=== PATIENT | female | born 1965 | race Caucasian/White ===

== ENCOUNTER 2018-07-05 05:36 | Observation (INO) ==
[2018-07-05] MEDS ORDERED: ceFAZolin 2 GM IV; once IV.SIG PRN (06:07)
[2018-07-05] MEDS ORDERED: Gabapentin 300 MG Capsule PO PRN (06:08)
[2018-07-05] MEDS ORDERED: Metoprolol Tartrate 25 MG Tablet PO ONE (06:10)
[2018-07-05] MEDS ORDERED: Chlorhexidine Gluconate 2% 1 Pack (2 Cloths) TOPICAL ONE (06:10)
[2018-07-05] MEDS ORDERED: ceFAZolin 2 GM Premix Inj 2 GM/100 ML BAG IV.SIG SCH (07:00)
[2018-07-05] MEDS ORDERED: Sodium Chlor 0.9% Inj 500 ML IV.SIG SCH (07:00)
[2018-07-05] MEDS ORDERED: Lidocaine 1%/Epinephrine 1:100,000 Inj 20 ML Vial ONE (07:22)
[2018-07-05] MEDS ORDERED: Ketorolac Inj 30 MG/ML (IVP) Vial IV.PUSH ONE ×2 (07:30→10:20)
[2018-07-05] MEDS ORDERED: Neostigmine Inj 5 MG/5 ML Syringe IV.PUSH ONE (07:30)
[2018-07-05] MEDS ORDERED: Glycopyrrolate Inj 1 MG/5 ML Syringe IV.PUSH ONE (07:30)
[2018-07-05] MEDS ORDERED: Lidocaine PF 1% Inj 5 ML Syringe OTHER ONE (07:30)
[2018-07-05] MEDS ORDERED: Ibuprofen 600 MG Tablet PO PRN (09:29)
[2018-07-05] MEDS ORDERED: fentaNYL Citrate Inj 100 MCG/2 ML Ampul ONE ×2 (09:47)
[2018-07-05] MEDS ORDERED: Morphine Inj 4 MG/ML Vial ONE (09:47)
[2018-07-05] MEDS ORDERED: *morphine SULFATE 10 MG/ML PERIprocedure ONLY ONE (09:54)
--- NOTE | 2018-07-05 10:04 | P.OP ---
Date of procedure: 07/05/18 Surgeon: Zeb Bejarano MD Operation and Findings: Preoperative diagnosis: 1. Abnormal uterine bleeding 2. Heavy menstrual bleeding 3. Fibroid uterus Postop diagnosis 1. Same as above status post hysterectomy Procedure 1. Total laparoscopic hysterectomy, bilateral salpingectomy, diagnostic cystoscopy. Lysis of adhesions taking approximately [address] Zeb Bejarano Fleece Tier: Dr. Lynch was present and scrubbed throughout the case, additionally [facility] scrub staff was available. Findings: 1. Normal external female genitalia vagina and cervix 2. Normal postop cystoscopy, bilateral reflux of ureters appreciated 3. Enlarged fibroid uterus, small but normal-appearing ovaries, normal fallopian tubes, the ovaries and fallopian tubes were adhesed to their respective pelvic sidewalls, other than that no pelvic adhesions. There were some omental adhesions of the right upper abdomen that were lysed. 4. Normal liver and gallbladder Anesthesia: General endotracheal Specimen: Uterus, cervix, bilateral fallopian tubes sent together, routine Estimated blood loss: 75 cc Fluid replacement: 1250 cc lactated Ringer's Urine output: 200 cc clear urine Via Banks DVT prophylaxis: Sequential compression devices throughout the case Antibiotics: 2 g Ancef preoperatively Preop medications: 1 g IV Tylenol, 600 mg p.o. gabapentin Counts: correct x2 Time out done: yes Disposition: Stable to PACU Indications: This patient is a 52-year-old who seen in outpatient setting for heavy menstrual bleeding and abnormal uterine bleeding was found to have a fibroid uterus, a normal endometrial biopsy was performed and had a otherwise a normal workup, we discussed all options and she elected for the above procedure. Please see H&P and consent for further details Description of procedure: The patient was taken to the operating room and placed under general anesthesia she was positioned in lithotomy position with Aaron stirrups with both arms tucked. The abdomen and vagina were prepped and draped in sterile fashion. A Banks was inserted. Uterus was sounded to 8 cm, a medium V care manipulator was placed with a suture applied to the cervix for traction. Attention was turned to the abdomen. A total of 8-10 cc of 1% lidocaine with epinephrine was used for each port site. A 5 mm umbilical incision was made and with direct optical view technique the abdomen was entered and insufflated with CO2 gas, the patient was placed in Trendelenburg. 2 left lower quadrant and one right lower quadrant 5 mm trocars were inserted with direct intra abdominal visualization. A survey was performed with the above findings. Omental adhesions were lysed from the right upper abdomen with the Enseal bipolar device, there were some adhesions of the colon around the area of the left adnexa which were lysed with the Enseal. A bilateral salpingectomy was performed using the Enseal and the specimens were removed from the abdomen. The left round ligament was transected and the anterior broad ligament opened and a bladder flap was developed with the Enseal and the same was done on the contralateral side. The posterior broad ligament was opened and the uterine arteries were skeletonized. The uterine arteries were clamped desiccated and transected with the Enseal bilaterally. Using monopolar energy a colpotomy was made The uterus was removed vaginally. The vaginal cuff was closed with running 2-0 unidirectional strata fix suture incorporating the uterosacrals for support. The abdomen was irrigated and the surgical sites were found to be hemostatic. Upon removing the uterus from the pelvis it was felt that a epiploic appendage of the colon was grabbed incidentally with a tenaculum. The Sigmoid colon was inspected and no obvious defect or damage was appreciated. A cystoscopy was performed with a 30 laparoscope using normal saline. No damage to the bladder was appreciated and bilateral reflux was noted. The Banks was left removed the abdomen was desufflated and the trocars removed. The skin was closed with 4-0 Monocryl and skin glue applied overlying. The patient was awoken from anesthesia and transferred to PACU.
[2018-07-05] MEDS ORDERED: HYDROmorphone PF Inj 2 MG/ML Vial ONE (10:10)
[2018-07-05] MEDS ORDERED: HYDROmorphone PF Inj 2 MG/ML Vial IV.PUSH PRN (10:45)
--- NOTE | 2018-07-05 17:07 | P.DS ---
Date of admission: 07/05/18 09:29 Primary care physician: Tin Segovia MD Brief History from admission: Patient is a 52-year-old female who had a total laparoscopic hysterectomy bilaterals salpingectomy and cystoscopy, this was done for fibroids and heavy menstrual bleeding, please see H&P and consent for further details, she was meeting her milestones on postoperative day #0 and was discharged home DS: Summary Hospital Course: see brief history - Time Spent with Patient Total time spent providing and/or coordinating discharge services: Less than 30 minutes - Quality: VTE Deep Vein Thrombosis/Pulmonary Embolism Present on Admission: No Exam Vital signs: Vital Signs 07/05/18 06:30 07/05/18 09:41 07/05/18 09:45 Temperature 98.5 F 97.7 F Pulse Rate 77 84 71 Respiratory Rate 16 19 20 Blood Pressure 134/80 114/65 128/71 Pulse Oximetry 99 100 100 07/05/18 10:00 07/05/18 10:15 07/05/18 10:20 Temperature 97.4 F L Pulse Rate 60 62 63 Respiratory Rate 20 21 19 Blood Pressure 133/64 120/75 120/75 Pulse Oximetry 100 100 100 07/05/18 10:47 07/05/18 14:58 Temperature 97.6 F Pulse Rate 64 62 Respiratory Rate 20 18 Blood Pressure 120/73 101/69 Pulse Oximetry 97 98 Intake & Output 07/04/18 07/05/18 07/05/18 18:59 06:59 18:59 Intake Total 1250 / 1250 Output Total 425 / 425 Balance 825 / 825 Weight 60.8 kg Intake: Anesthesia Amount 1250 / 1250 Output: Urine 150 / 150 Estimated Blood Loss 75 / 75 Urine Amount (Catheter) 200 / 200 Indwelling Urethral Catheter 200 / 200 Other: Weight On Admission 60.8 kg Results Procedures completed during hospitalization: Total laparoscopic hysterectomy, bilateral salpingectomy, diagnostic cystoscopy Discharge Plan - Discharge Disposition Patient Disposition: 01 Discharge Home - Discharge Condition Condition: Good - Discharge Order Discharge Orders: Discharge Order (Routine); Ordered 07/05/18 Ordered By: Zeb Bejarano - Physicians Team Primary Care Provider: Tin Segovia Attending Provider: Zeb Bejarano - Rxs /Orders / Referrals /Forms Prescriptions: Continue bupropion HCl (smoking deter) 150 mg Tablet Extended Release 12 Hr 150 mg PO DAILY folic acid 20 mg Capsule 20 mg PO DIRECTED methotrexate sodium 2.5 mg Tablet 6 tab PO DIRECTED Referrals: Tin Segovia MD [Primary Care Provider] - See Instructions - Discharge Instructions Patient Printed Instructions: Laparoscopic Hysterectomy (DC) Additional Instructions: We want you to have a wonderful recovery! Please Report the Following Symptoms to Your Doctor: -Temperature above 100.5 degrees -Redness of incision or excessive or foul smelling drainage -Unusual pain or calf pain -Increased vaginal bleeding -Painful or difficulty urinating Goals to Promote Your Health * To prevent worsening of your condition and complications * To maintain your health at the optimal level Directions to Meet Your Goals Take your medications as prescribed Follow your dietary instruction Follow activity as directed Ensure plenty of rest for recovery Drink fluids for hydration Keep your appointments as scheduled Take your immunizations and boosters as scheduled If your symptoms worsen call your [employer] Physician, or go to an Urgent Care Center or Emergency Room Smoking is Dangerous to your health. Avoid second hand smoke Call the 24-hour crisis hotline for domestic abuse at
--- NOTE | 2018-07-05 17:14 | ECG ---
Date Performed: 07/05/2018 Time Performed: 06:30:51 PTAGE: 52 years EKG: Sinus rhythm NORMAL ECG NO PREVIOUS TRACING DOCTOR: Mayank Rangel Interpretating Date/Time 07/05/2018 17:13:43
[2018-07-05] MEDS ORDERED: Docusate Sodium 100 MG Capsule PO SCH (21:00)
[2018-07-06] MEDS ORDERED: buPROPion 150 MG 12 HR Tablet PO SCH (09:00)
[2018-09-03] MEDS ORDERED: Folic Acid 1 MG Tablet PO SCH (09:00)
== END 2018-07-05 18:09 | disposition home or self-care (01) ==
LOC: HSDC 05:36 → H1EA 05:36 → EDSTATUS 07:30
PROVIDERS: ADMIT Obstetrics & Gynecology; ATTEND Obstetrics & Gynecology